=== PATIENT | female | born 1960 | race Caucasian/White ===

== ENCOUNTER → 2016-04-24 | Outpatient (CLI) | payer OTHER ==
--- NOTE | 2016-04-24 17:18 | US ---
Complete Pelvic Ultrasound INDICATION: Complex left ovarian cyst. TECHNIQUE: Transabdominal and transvaginal pelvic ultrasound is performed. COMPARISON: June 10, 2015. FINDINGS: Uterus measures 7.1 x 3.1 x 4.7 cm. No fibroids. Endometrial lining measures 2 mm. Focus of calcifications at the fundus of the uterus probably represent dystrophic previous fibroids. Right ovary measures 1.8 x 1 x 2.1 cm. It is sonographically normal. There has been complete interval resolution of the simple-appearing cyst. Left ovary measures 2 x 0.8 x 2 cm. It is also sonographically normal. There has been complete interv al resolution of the previously present complex cyst. No free fluid in the pelvis. IMPRESSION: Basically normal complete pelvic ultrasound for patient's age today. Resolution of bilate ral ovarian cysts.
== END ==
LOC: FIMAGING 11:36
PROVIDERS: ATTEND Midwife
DX: Z87.42 Personal history of other diseases of the female genital tract (principal)

== ENCOUNTER → 2017-08-03 | Outpatient (CLI) | payer OTHER | LOC: FIMAGING 12:19 | PROVIDERS: ATTEND Midwife | DX: N85.8 Other specified noninflammatory disorders of uterus (principal); D25.9 Leiomyoma of uterus, unspecified ==

== ENCOUNTER 2017-08-05 12:30 | Observation (INO) | payer OTHER ==
[2017-08-05] MEDS ORDERED: NS 1,000 ML IV ONE (12:56)
--- NOTE | 2017-08-05 12:58 | EDPHY ---
H & P Stated Complaint: r abd pain since wednesday Time Seen by Provider: 08/05/17 12:49 HPI/ROS: CHIEF COMPLAINT: Right lower quadrant pain HISTORY OF PRESENT ILLNESS: Patient is a 57-year-old female who comes to the emergency department complaining of worsening right lower quadrant pain since Wednesday. She saw her OBGYN on Wednesday who performed a pelvic exam and ultrasound and said that her ovaries in uterus were normal. She also checked a urinalysis which was normal. Patient denies fevers. She has had slight nausea but no vomiting. No diarrhea. No blood in her stool. No trauma. No palpable lumps or masses. No rashes. REVIEW OF SYSTEMS: Constitutional: denies: chills, fever, recent illness, recent injury EENTM: denies: blurred vision, double vision, nose congestion Respiratory: denies: cough, shortness of breath Cardiac: denies: chest pain, irregular heart rate, lightheadedness, palpitations Gastrointestinal/Abdominal: See HPI Genitourinary: denies: dysuria, frequency, hematuria, pain Musculoskeletal: denies: joint pain, muscle pain Skin: denies: lesions, rash, jaundice, bruising Neurological: denies: headache, numbness, paresthesia, tingling, dizziness, weakness Hematologic/Lymphatic: denies: blood clots, easy bleeding, easy bruising Immunologic/allergic: denies: HIV/AIDS, transplant EXAM: GENERAL: Well-appearing, well-nourished and in no acute distress. HEAD: Atraumatic, normocephalic. EYES: Pupils equal round and reactive to light, extraocular movements intact, sclera anicteric, conjunctiva are normal. ENT: TMs normal, nares patent, oropharynx clear without exudates. Moist mucous membranes. NECK: Normal range of motion, supple without lymphadenopathy or JVD. LUNGS: Breath sounds clear to auscultation bilaterally and equal. No wheezes rales or rhonchi. HEART: Regular rate and rhythm without murmurs, rubs or gallops. ABDOMEN: Slightly tender right lower quadrant, normoactive bowel sounds. No guarding, no rebound. No masses appreciated. BACK: No CVA tenderness, no spinal tenderness, step-offs or deformities EXTREMITIES: Normal range of motion, no pitting or edema. No clubbing or cyanosis. NEUROLOGICAL: Cranial nerves II through XII grossly intact. Normal speech, normal gait. 5/5 strength, normal movement in all extremities, normal sensation PSYCH: Normal mood, normal affect. SKIN: Warm, dry, normal turgor, no visible rashes or lesions. Source: Patient Exam Limitations: No limitations - Personal History Current Tetanus/Diphtheria Vaccine: Unsure - Medical/Surgical History Hx Asthma: No Hx Chronic Respiratory Disease: No Hx Diabetes: No Hx Cardiac Disease: Yes Hx Renal Disease: No Hx Cirrhosis: No Hx Alcoholism: No Hx HIV/AIDS: No Hx Splenectomy or Spleen Trauma: No Other PMH: Hypothyroidism, parathyroidectomy, - Family History Significant Family History: No pertinent family hx - Social History Smoking Status: Never smoked Alcohol Use: Sober Drug Use: None Constitutional: Initial Vital Signs Temperature (C) 37.2 C 08/05/17 12:34 Heart Rate 72 08/05/17 12:34 Respiratory Rate 17 08/05/17 12:34 Blood Pressure 115/82 H 08/05/17 12:34 O2 Sat (%) 96 08/05/17 12:34 O2 Delivery Mode Room Air Allergies/Adverse Reactions: latex Allergy (Verified 08/05/17 12:33) Home Medications: Medication Instructions Recorded Supplements 08/05/17 Thyroid 08/05/17 Medical Decision Making - Diagnostics Imaging Results: Imaging Impressions Abdomen CT 08/05/17 12:56 Impression: 1. Features consistent with acute appendicitis. 2. Query mild concurrent gastroenteritis. 3. 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 Findings were discussed with STEPHANY LEUNG MD at 14:14, on 08/05/2017. Imaging: Discussed imaging studies w/ inbound call center representative Radiologist ED Course/Re-evaluation: 2:30 p.m. We discussed the CT results. The patient is requesting Dr. Mcneil even though he is not diamond setter apprentice. I have started antibiotics and in attempting to page him directly. I spoke with Dr. Jony Mcneil is currently in the OR. He will sales enablement consultant operate on the patient tonight. 2:30 p.m. the patient is now refusing Levaquin because she is worried about liver damage. I told her I would likely be a single time dose. She will talk to Dr. Samreen Mcneil about antibiotic selection. She is also concerned and is not sure she wants to be put under anesthesia for fear brain damage. Differential Diagnosis: Partial list of the Differential diagnosis considered include but were not limited to; appendicitis, urinary tract infection, ovarian cyst and although unlikely based on the history and physical exam, I also considered ovarian torsion, kidney stone, hernia. - Data Points Laboratory Results: Laboratory Results 08/05/17 12:52 08/05/17 12:52 08/05/17 08/05/17 08/05/17 12:52 12:52 12:52 WBC RBC Hgb Hct MCV MCH MCHC RDW Plt Count MPV Neut % (Auto) Lymph % (Auto) Lanier % (Auto) Eos % (Auto) Baso % (Auto) Nucleat RBC Rel Count Absolute Neuts (auto) Absolute Lymphs (auto) Absolute Monos (auto) Absolute Eos (auto) Absolute Basos (auto) Absolute Nucleated RBC Immature Gran % Immature Gran # PT 13.2 SEC SEC (12.0-15.0) INR 0.98 (0.83-1.16) APTT 24.1 SEC SEC (23.0-38.0) Sodium 142 mEq/L mEq/L (135-145) Potassium 4.0 mEq/L mEq/L (3.5-5.2) Chloride 103 mEq/L mEq/L (97-110) Carbon Dioxide 25 mEq/l mEq/l (22-31) Anion Gap 14 mEq/L mEq/L (8-16) BUN 16 mg/dL mg/dL (7-23) Creatinine 0.8 mg/dL mg/dL (0.6-1.0) Estimated GFR > 60 Glucose 109 mg/dL H mg/dL (70-100) Calcium 9.1 mg/dL mg/dL (8.5-10.4) Total Bilirubin 0.5 mg/dL mg/dL (0.1-1.4) Conjugated Bilirubin 0.4 mg/dL mg/dL (0.0-0.5) Unconjugated Bilirubin 0.1 mg/dL mg/dL (0.0-1.1) AST 24 IU/L IU/L (14-46) ALT 37 IU/L IU/L (9-52) Alkaline Phosphatase 69 IU/L IU/L (38-126) Total Protein 7.6 g/dL g/dL (6.3-8.2) Albumin 4.4 g/dL g/dL (3.5-5.0) Lipase 178 IU/L IU/L (23-300) Beta HCG, Qual NEGATIVE Urine Color Urine Appearance Urine pH Ur Specific Franklin Urine Protein Urine Ketones Urine Blood Urine Nitrate Urine Bilirubin Urine Urobilinogen Ur Leukocyte Esterase Urine RBC Urine WBC Ur Epithelial Cells Urine Mucus Urine Glucose 08/05/17 08/05/17 08/05/17 12:52 12:40 12:40 WBC 11.84 10^3/uL H 10^3/uL (3.80-9.50) RBC 4.92 10^6/uL 10^6/uL (4.18-5.33) Hgb 15.4 g/dL g/dL (12.6-16.3) Hct 45.3 % % (38.0-47.0) MCV 92.1 fL fL (81.5-99.8) MCH 31.3 pg pg (27.9-34.1) MCHC 34.0 g/dL g/dL (32.4-36.7) RDW 12.5 % % (11.5-15.2) Plt Count 255 10^3/uL 10^3/uL (150-400) MPV 10.7 fL fL (8.7-11.7) Neut % (Auto) 76.6 % H % (39.3-74.2) Lymph % (Auto) 15.2 % % (15.0-45.0) Lanier % (Auto) 6.6 % % (4.5-13.0) Eos % (Auto) 1.0 % % (0.6-7.6) Baso % (Auto) 0.4 % % (0.3-1.7) Nucleat RBC Rel Count 0.0 % % (0.0-0.2) Absolute Neuts (auto) 9.07 10^3/uL H 10^3/uL (1.70-6.50) Absolute Lymphs (auto) 1.80 10^3/uL 10^3/uL (1.00-3.00) Absolute Monos (auto) 0.78 10^3/uL 10^3/uL (0.30-0.80) Absolute Eos (auto) 0.12 10^3/uL 10^3/uL (0.03-0.40) Absolute Basos (auto) 0.05 10^3/uL 10^3/uL (0.02-0.10) Absolute Nucleated RBC 0.00 10^3/uL 10^3/uL (0-0.01) Immature Gran % 0.2 % % (0.0-1.1) Immature Gran # 0.02 10^3/uL 10^3/uL (0.00-0.10) PT INR APTT Sodium Potassium Chloride Carbon Dioxide Anion Gap BUN Creatinine Estimated GFR Glucose Calcium Total Bilirubin Conjugated Bilirubin Unconjugated Bilirubin AST ALT Alkaline Phosphatase Total Protein Albumin Lipase Beta HCG, Qual Urine Color PALE YELLOW Urine Appearance CLEAR Urine pH 7.0 (5.0-7.5) Ur Specific Franklin 1.004 (1.002-1.030) Urine Protein NEGATIVE (NEGATIVE) Urine Ketones NEGATIVE (NEGATIVE) Urine Blood NEGATIVE (NEGATIVE) Urine Nitrate NEGATIVE (NEGATIVE) Urine Bilirubin NEGATIVE (NEGATIVE) Urine Urobilinogen NEGATIVE EU EU (0.2-1.0) Ur Leukocyte Esterase NEGATIVE (NEGATIVE) Urine RBC NONE SEEN /hpf /hpf (0-3) Urine WBC 1-3 /hpf /hpf (0-3) Ur Epithelial Cells TRACE /lpf /lpf (NONE-1+) Urine Mucus TRACE /lpf /lpf (NONE-1+) Urine Glucose NEGATIVE (NEGATIVE) Medications Given: Discontinued Medications Sodium Chloride (Ns) 1,000 mls @ 0 mls/hr IV EDNOW ONE; Wide Open PRN Reason: Protocol Stop: 08/05/17 12:57 Last Admin: 08/05/17 13:03 Dose: 1,000 mls Departure - Departure Disposition: [facility] Acute Clinical Impression: Appendicitis Qualifiers: Appendicitis type: acute appendicitis Acute appendicitis type: with localized peritonitis Qualified Code(s): K35.3 - Acute appendicitis with localized peritonitis Condition: Fair
[2017-08-05 13:05] LABS: PLATELET COUNT 255 10^3/uL (150-400)
[2017-08-05 13:13] LABS: INR 0.98 (0.83-1.16); PROTIME(PATIENT) 13.2 SEC (12.0-15.0)
[2017-08-05] MEDS ORDERED: IOPAMIDOL (ISOVUE-300) 100 ML BTL ONE (13:22)
[2017-08-05] MEDS ORDERED: ERTAPENEM 1 GM VIAL IV ONE (16:32)
[2017-08-05] MEDS ORDERED: LR 1,000 ML IV SCH (17:00)
--- NOTE | 2017-08-05 17:33 | PDGENHP ---
History & Physical Chief Complaint: rlq pain since wednesday History of Present Illness: female with rlq pain with activity since wednesday/ admit for lap appe/ ct shows appendicitis/ wbc 11k/ no trauma/ no fwever, emesis or diarhea Pertinent Past, Social, Family History: pmh: csection, parathyroidectomy. all: pcn, latex. fam hx: noncontrib. meds none. ros: - 1o pt review, specifically non smoker Relevant Physical Exam: alert 57 female in no acute distress, afebrile. heent: nonicteric, perrla, no nodes,supple. chest clear. cor rr. abd soft, tender rlq with rebound and some guarding. extr full pulses. neuro physiologic. psych alert, oriented and cooperative Cardiorespiratory Assessment: acute appendicitis. plan lap appe/ risks and options fully discussed
[2017-08-05] MEDS ORDERED: HEPARIN 1000 UNIT/1 ML MDV ONE (17:53)
[2017-08-05] MEDS ORDERED: ceFAZolin 1 GM/5 ML SYR ONE (17:53)
[2017-08-05] MEDS ORDERED: BUPIVACAINE 0.5% 30 ML SDV ONE (17:53)
[2017-08-05] MEDS ORDERED: MIDAZOLAM 2 MG/2 ML VIAL ONE (18:07)
[2017-08-05] MEDS ORDERED: MIDAZOLAM 2 MG/2 ML VIAL IVP ONE (18:10)
--- NOTE | 2017-08-05 18:11 | PDANEPAE ---
ANE History of Present Illness Patient presents for lap appy ROSALINDA Past Medical History - Pulmonary History Hx Oxygen in Use at Home: No Hx Sleep Apnea: No - Endocrine History Hx Diabetes: No ANE Review of Systems Review of Systems: - Exercise capacity Exercise capacity: >=4 METS ANE Patient History - Allergies Allergies/Adverse Reactions: latex Allergy (Verified 08/05/17 12:33) - Home Medications Home Medications: Supplements 08/05/17 [Last Taken Unknown] Thyroid 08/05/17 [Last Taken Unknown] - NPO status NPO Status: no food or drink >8 hours NPO Since - Liquids (Date): 08/05/17 NPO Since - Liquids (Time): 10:00 NPO Since - Solids (Date): 08/05/17 NPO Since - Solids (Time): 10:00 - Anes Hx Anes Hx: no prior problems - Smoking Hx Smoking Status: Never smoked - Alcohol Use Alcohol Use: Sober ANE Labs/Vital Signs - Labs Result Diagrams: 08/05/17 12:52 08/05/17 12:52 - Vital Signs Blood Pressure: 113/67 Heart Rate: 70 Respiratory Rate: 16 O2 Sat (%): 98 Height: 172.72 cm Weight: 58.06 kg ANE Physical Exam - Airway Neck exam: FROM Mallampati Score: Class 2 - Pulmonary Pulmonary: no respiratory distress - Cardiovascular Cardiovascular: regular rate and rhythym - ASA Status ASA Status: I, E ANE Anesthesia Plan Anesthesia Plan: general endotracheal anesthesia (RBA discussed)
[2017-08-05] MEDS ORDERED: PROPOFOL 200 MG/20 ML VIAL ONE (18:14)
[2017-08-05] MEDS ORDERED: PROPOFOL/EMULSION 500 MG/50 ML BOTTLE IV ONE (18:14)
[2017-08-05] MEDS ORDERED: fentaNYL 100 MCG/2 ML INJ ONE ×2 (18:14→19:37)
[2017-08-05] MEDS ORDERED: ROCURONIUM 50 MG/5 ML VIAL ONE (18:21)
[2017-08-05] MEDS ORDERED: LIDOCAINE 2% 5 ML SDV ONE (18:21)
--- NOTE | 2017-08-05 18:25 | GCON ---
[f rep st] CONSULTATION HISTORY OF PRESENT ILLNESS: We were asked to see this patient by the emergency department for acute appendicitis. She is a 57-year-old female who presented earlier today for worsening right lower quad rant pain that started Wednesday. She originally thought that she was having ovulation pain, so she modesto t and saw her BATH TESTER on Wednesday. Her BATH TESTER had performed a pelvic exam and ultrasound that showed t hat her ovaries and uterus were both normal. She also had a urinalysis that was normal. Currently, she is experiencing focal right lower quadrant pain. She denies fevers, nausea, and vomiting. Denie s diarrhea but does report mild constipation. REVIEW OF SYSTEMS: A 10-point review of systems was performed and was negative except for what is in the HPI. FAMILY HISTORY: Noncontributory. PAST MEDICAL HISTORY: Positive for hypothyroidism and a parathyroid nodule in 2017. PAST SURGICAL HISTORY: Includes section and partial parathyroidectomy. SOCIAL HISTORY: She has never smoked and she does not use alcohol or drugs. ALLERGIES: Lasix and penicillins. Penicillins give her hives. PHYSICAL EXAMINATION: GENERAL: Well-appearing, well-nourished. No acute distress. HEENT: Head no rmocephalic. Pupils are equal and round. No gross hearing deficits. Moist mucous membranes. CARDI AC: Regular rate and rhythm and rhythm without murmurs, rubs, or gallops. LUNGS: Breath sounds are clear to auscultation bilaterally. ABDOMEN: Slightly distended but soft. Focally tender in the rig ht lower quadrant. Normoactive bowel sounds. No rebound tenderness. No guarding. NEUROLOGIC: Taylor rt and oriented. PSYCH: Normal mood and affect. SKIN: Warm and dry. No rashes. IMPRESSION AND PLAN: I reviewed the CT scan with Dr. Mcneil. The CT scan shows features that are con sistent with acute appendicitis. Therefore, we will take the patient to the operating room to take h er appendix out. I did discuss the plan with the patient, and she is in agreement. We discussed all options and risks including, but not limited to, infection, bleeding, damage to a surrounding struct ure or nerve, heart attack, and . Patient agrees with plan and we will plan for operating on stephani lang at 6 p.m. marjan. /[id number]/MODL
[2017-08-05] MEDS ORDERED: ONDANSETRON 4 MG/2 ML VIAL IVP PRN ×2 (18:37→19:01)
[2017-08-05] MEDS ORDERED: OXYCODONE/APAP 5/325 TAB PO PRN (18:37)
[2017-08-05] MEDS ORDERED: HYDROmorphONE/DILAUDID 1 MG/ML INJ IVP PRN (18:37)
--- NOTE | 2017-08-05 18:41 | POSTOPPROG ---
Post Op Note Date of Operation: 08/05/17 Surgeon: Cory Mcneil Anesthesiologist: eagle Anesthesia: GET(General Endotracheal) Pre-op Diagnosis: acute appe Post-op Diagnosis: same Indication: pain Procedure: lap appe Findings: acute appe Inf/Abcess present in the surg proc area at time of surgery?: Yes Depth: Organ Space EBL: Minimal Complications: 0 Specimen(s): appendix
[2017-08-05] MEDS ORDERED: D5W 1/2 NS W/ 20 KCl/L 1,000 ML IV SCH (18:45)
[2017-08-05] MEDS ORDERED: DEXAMETHASONE 4 MG/ML VIAL ONE (18:49)
[2017-08-05] MEDS ORDERED: KETOROLAC 30 MG/1 ML SDV ONE (18:57)
[2017-08-05] MEDS ORDERED: NALOXONE HCL 0.4 MG/ML INJ IVP PRN (19:01)
[2017-08-05] MEDS ORDERED: fentaNYL 100 MCG/2 ML INJ IVP PRN (19:01)
[2017-08-05] MEDS ORDERED: LR 500 ML IV PRN (19:01)
--- NOTE | 2017-08-05 19:25 | POSTANESTH ---
Post Anesthetic Evaluation Cardiovascular Status: Similar to Pre-Op Cond Respiratory Status: Similar to Pre-op Cond. Level of Consciousness/Mental Status: Can Participate in Eval Pain Control: Adequate, Prn Tx Ordered Nausea/Vomiting Control: Adequate, Prn Tx Ordered Complications Possibly Related to Anesthesia: None Noted
[2017-08-06] MEDS: KETOROLAC 15 MG/1 ML SDV IVP SCH ×3 (00:55→14:16)
[2017-08-06] MEDS ORDERED: POLYETHYLENE GLYCOL 3350 17 GM PKT PO ONE (10:08)
--- NOTE | 2017-08-06 10:08 | SOAPPROG ---
SOAP Progress Note Assessment/Plan: Assessment: 57 y/o F s/p lap appy S: Doing well. Has not taken any narcotics for pain, toradol is controlling her pain very well. O: Alert Afebrile RRR No increase WOB Abdomen: softly distended, normoactive bowel sounds, incisions cdi. Plan: Plan for discharge home today. One dose of miralax before she goes. Pt is wondering if she can drive herself home. She lives 10 [place]. I don't recommend that she drive herself home. Although she has not taken any narcotics, discussed the safety risk with incisional pain and decreased reflexes. 08/06/17 10:04 Objective: Vital Signs Temp Pulse Resp BP Pulse Ox 36.4 C 55 L 15 87/53 L 97 08/06/17 05:30 08/06/17 05:30 08/06/17 05:30 08/06/17 05:30 08/06/17 05:30 08/05/17 08/06/17 08/07/17 05:59 05:59 05:59 Intake Total 3545 Output Total 720 Balance 2825 PT 13.2 SEC (12.0-15.0) 08/05/17 12:52 INR 0.98 (0.83-1.16) 08/05/17 12:52 ICD10 Worksheet Patient Problems: Problems Problem Status Onset Appendicitis Acute
[2017-08-06 13:20] VITALS: BP 85/57
--- NOTE | 2017-08-08 20:31 | GOP ---
[f rep st] OPERATIVE REPORT DATE OF OPERATION: 08/05/2017 SURGEON: Cory Mcneil MD PREOPERATIVE DIAGNOSIS: Acute appendicitis. POSTOPERATIVE DIAGNOSIS: Acute appendicitis. PROCEDURE PERFORMED: Laparoscopic appendectomy. FINDINGS: The patient was found to have acute nonperforated appendicitis. DESCRIPTION OF PROCEDURE: The patient was taken to the operating room where she received satisfactor y general endotracheal anesthesia. She was placed in supine position and prepped and draped in the u sual sterile fashion. A periumbilical incision was made. A Veress needle was inserted. Pneumoperit oneum was established. Trocar was introduced. Laparoscope introduced. Good visualization was obtai safia. Two other trocars were placed under direct vision in the lower abdomen. The appendix was eleva chandni up. The appendix was acutely inflamed with separation, but no actual perforation. The base of t he appendix was quite inflamed and near perforation. The mesoappendix was divided with the Harmonic scalpel until the base was skeletonized. The appendix was then divided along with a small portion of the cecum with the Endo MAYRA stapler, placed in a specimen bag, and removed. Hemostasis was assured. The wound was irrigated. Trocars removed under direct vision. Trocar sites were closed with 0 Andres ryl for the fascia, 4-0 Monocryl subcuticular stitch for the skin. All layers infiltrated with 0.5% Marcaine. Blood loss negligible. No complications. Taken to recovery room in good condition. Copy requested to: Lane Kent /[id number]/MODL
== END 2017-08-06 16:30 | disposition home or self-care (01) ==
LOC: FOB 15:40
PROVIDERS: ADMIT Surgery; ATTEND Surgery
PROC: 0DTJ4ZZ Resection of Appendix, Percutaneous Endoscopic Approach (ICD-10-PCS; principal; 2017-08-05 16:30)
DX: K35.80 Unspecified acute appendicitis (principal); E03.9 Hypothyroidism, unspecified; Z91.040 Latex allergy status; Q63.1 Lobulated, fused and horseshoe kidney
CPT/HCPCS: 44970; 74177; G0378; 96374; J1100; J1335; J1885; J2250; J2704; J3010; Q9967

== ENCOUNTER → 2018-03-23 | Outpatient (CLI) | payer OTHER | LOC: FIMAGING 03-03 15:40 | DX: Z13.820 Encounter for screening for osteoporosis (principal); M85.89 Other specified disorders of bone density and structure, multiple sites; Z78.0 Asymptomatic menopausal state; Z79.899 Other long term (current) drug therapy ==